=== PATIENT | female | born 1945 | race African-American/Black ===

== ENCOUNTER 2017-01-02 14:35 | Emergency (ER) | payer MEDICARE, BC ==
[~2017-01-02] VITALS: Ht 170.2 cm; Wt 110.0 kg
[~2017-01-02 14:35] MED LIST: ACET-2178 PO
[2017-01-02 15:02] VITALS: BP 108/62
[2017-01-02] MEDS ORDERED: SODIUM CHLORIDE 0.9% 500 ML IV ONE (16:00)
[2017-01-02 16:09] LABS: CLARITY URINE CLEAR (CLEAR); COLOR URINE YELLOW (YELLOW); GLUCOSE URINE 3+ (NEGATIVE); KETONES URINE NEGATIVE (NEGATIVE); LEUKOCYTE ESTERASE URINE NEGATIVE (NEGATIVE); NITRITE URINE NEGATIVE (NEGATIVE); OCCULT BLOOD URINE NEGATIVE (NEGATIVE); PH URINE 5.5 (4.5-8.0); PROTEIN URINE NEGATIVE (NEGATIVE); SPECIFIC GRAVITY URINE 1.025 (1.005-1.030); UROBILINOGEN URINE 0.2 E.U./dL (0.2-1.0)
[2017-01-02 16:13] LABS: BASOPHILS % 0.4 % (0.0-2.0); EOSINOPHILS % 0.4 % (0.0-5.0); HEMOGLOBIN. 12.5 g/dL (12.0-16.0); LYMPHOCYTES % 26.5 % (20.0-50.0); MEAN CORPUSCULAR VOLUME 85.3 fL (81.0-99.0); MEAN PLATELET VOLUME 8.7 fl (7.4-10.4); MONOCYTES % 5.9 % (2.0-8.0); NEUTROPHILS % 66.8 % (40.0-76.0); PLATELET 220 x1000/uL (130-400); RED BLOOD CELL COUNT 4.45 mill/uL (4.2-5.4)
[2017-01-02 16:15] LABS: CHLORIDE 108 mEq/L (98-107)
[2017-01-02 16:19] LABS: CARBON DIOXIDE 24 mEq/L (21-32)
[2017-01-02 16:20] LABS: *AMPHETAMINES SCREEN URINE NEGATIVE (NEGATIVE); *BARBITURATES SCREEN URINE NEGATIVE (NEGATIVE); *BENZODIAZEPINES SCREEN URINE NEGATIVE (NEGATIVE); *COCAINE SCREEN URINE NEGATIVE (NEGATIVE); CANNABINOID URINE SCREEN NEGATIVE (NEGATIVE); METHADONE URINE SCREEN NEGATIVE (NEGATIVE); OPIATES URINE SCREEN NEGATIVE (NEGATIVE); PHENCYCLIDINE URINE SCREEN NEGATIVE (NEGATIVE)
[2017-01-02 16:24] LABS: PROTHROMBIN TIME 10.4 sec (9.4-11.6)
[2017-01-02 16:26] LABS: TROPONIN I < 0.02 ng/mL (0.00-0.04)
== END 2017-01-02 17:32 | disposition left against medical advice (07) ==
LOC: ER 14:37
DX: E11.65 Type 2 diabetes mellitus with hyperglycemia (principal); N17.0 Acute kidney failure with tubular necrosis; E86.0 Dehydration; E11.21 Type 2 diabetes mellitus with diabetic nephropathy; R81 Glycosuria; R82.71 Bacteriuria; E87.8 Other disorders of electrolyte and fluid balance, not elsewhere classified; R74.8 Abnormal levels of other serum enzymes; Z98.84 Bariatric surgery status
CPT/HCPCS: 36415; 80053; 80305; 81001; 83036; 83880; 84484; 85025; 85610; 93005; 96360; 99284; J7040

== ENCOUNTER 2023-12-01 23:12 | Emergency (ER) | payer MEDICARE, BC ==
[~2023-12-01] VITALS: Ht 177.8 cm; Wt 73.0 kg
[~2023-12-01 23:12] MED LIST changes: -ACET-2178 PO; +TOPUD PO
[2023-12-01 23:14] VITALS: BP 111/52; PULSE 80; RESP 18; TEMP 98.4; O2SAT 98
[2023-12-01] MEDS: SODIUM CHLORIDE 0.9% 1,000 ML IV NR (23:38)
[2023-12-01 23:43] LABS: BASOPHILS % 0.6 % (0.0-2.0); EOSINOPHILS % 1.2 % (0.0-5.0); HEMOGLOBIN. 10.7 g/dL (12.0-16.0); LYMPHOCYTES % 49.2 % (20.0-50.0); MEAN CORPUSCULAR HEMOGLOBIN 28.5 pg (28.0-32.0); MEAN CORPUSCULAR HGB CONC 33.4 g/dL (31.0-37.0); MEAN CORPUSCULAR VOLUME 85.4 fL (81.0-99.0); MEAN PLATELET VOLUME 8.4 fl (7.4-10.4); MONOCYTES % 5.8 % (2.0-8.0); NEUTROPHILS % 43.2 % (40.0-76.0); PLATELET 190 x1000/uL (130-400); RED BLOOD CELL COUNT 3.75 mill/uL (4.2-5.4); RED CELL DISTRIBUTION WIDTH 14.3 % (11.6-14.6); WHITE BLOOD COUNT 5.6 x1000/uL (4.5-11.0)
[2023-12-01 23:53] LABS: CHLORIDE 105 mEq/L (98-107); POTASSIUM 3.3 mEq/L (3.5-5.1); SODIUM 144 mEq/L (136-145)
[2023-12-01 23:54] LABS: CALCIUM 9.9 mg/dL (8.7-10.4); CARBON DIOXIDE 33 mEq/L (21-32)
[2023-12-01] MEDS: ACETAMINOPHEN 1000MG/100ML 100 ML IV ONE (23:55)
[2023-12-01 23:59] LABS: GLUCOSE 139 mg/dL (70-105); UREA NITROGEN BLOOD 20 mg/dL (9-23)
[2023-12-02] LABS: TROPONIN I HIGH SENSITIVITY 16 ng/L (3.0-34)
[2023-12-02 00:01] LABS: ALANINE AMINOTRANSFERASE 37 IU/L (10-49); ALBUMIN 3.8 g/dL (3.2-4.8); ASPARTATE AMINOTRANSFERASE 39 IU/L (<34); BILIRUBIN DIRECT 0.1 mg/dL (<=3.0); BILIRUBIN TOTAL 0.4 mg/dL (0.1-1.0)
[2023-12-02] MEDS ORDERED: IOHEXOL-300 100 ML BOTTLE ONE (03:53)
== END 2023-12-02 02:08 | disposition home or self-care (01) ==
LOC: ER 23:12
DX: R10.13 Epigastric pain (principal); Z87.440 Personal history of urinary (tract) infections; E78.00 Pure hypercholesterolemia, unspecified; K59.00 Constipation, unspecified; Z88.5 Allergy status to narcotic agent
CPT/HCPCS: 99285; 74177; 96365; 80076; 80048; 83605; 83690; 85025; 84484; 36415; Q9967; J0131